=== PATIENT | male | born 2000 | race Caucasian/White ===

== ENCOUNTER 2022-11-24 21:44 | Emergency (ER) | payer OTHER ==
[~2022-11-24] VITALS: Ht 180.3 cm; Wt 111.1 kg
[2022-11-24 22:04] VITALS: BP_SYST 130; PULSE 68; RESP 18; TEMP 98.2; O2SAT 96
== END 2022-11-25 00:05 | disposition left against medical advice (07) ==
LOC: SED 21:44
DX: H53.8 Other visual disturbances (principal); Z53.21 Procedure and treatment not carried out due to patient leaving prior to being seen by health care provider
CPT/HCPCS: 99281